=== PATIENT | female | born 1995 | race African-American/Black ===

== ENCOUNTER 2016-11-02 20:01 | Emergency (ER) | payer OTHER ==
[~2016-11-02] VITALS: Ht 157.5 cm; Wt 72.6 kg
[2016-11-02 20:32] LABS: URINE BILIRUBIN NEGATIVE (Negative); URINE BLOOD 3+ (Negative); URINE COLOR YELLOW; URINE GLUCOSE-RANDOM* NEGATIVE (Negative); URINE KETONES 2+ (Negative); URINE LEUKOCYTES-REFLEX NEGATIVE (Negative); URINE PROTEIN (DIPSTICK) NEGATIVE (Negative); URINE SPECIFIC GRAVITY 1.025 (1.003-1.035); URINE UROBILINOGEN 0.2 E.U./dl (0.2-1.0)
[2016-11-02 20:37] LABS: SQUAMOUS 4-10 Moderate /LPF (0-3); URINE WBC-REFLEX 0-5 Rare /HPF (0-5)
[2016-11-02 20:39] LABS: CASTS None Seen /LPF (None Seen); CRYSTALS None Seen /LPF (None Seen)
[2016-11-02 21:11] LABS: ABSOLUTE NEUTROPHILS 4.7 thou/uL (1.4-8.2); BASOPHILS 0.7 % (0.0-2.0); EOSINOPHILS 2.1 % (0.0-3.0); HEMATOCRIT 36.9 % (37.0-47.0); HEMOGLOBIN 12.3 gm/dL (12.0-15.0); LYMPHOCYTES 34.1 % (24.0-44.0); MCH 29.1 pg (26.0-34.0); MCHC 33.4 % (28.0-37.0); MONOCYTES 8.2 % (1.0-8.0); PLATELET COUNT 190 thou/uL (150-400); POLYS 54.9 % (36.0-66.0); RBC 4.24 mil/uL (4.20-5.00); RDW 13.5 % (10.5-14.5); WBC 8.5 thou/uL (4.0-11.0)
[2016-11-02 21:12] LABS: MANUAL DIFF NO
[2016-11-02 21:19] LABS: CALCIUM 8.7 mg/dL (8.5-10.1); CREATININE 0.7 mg/dL (0.6-1.3); POTASSIUM 3.4 mmol/L (3.5-5.1)
[2016-11-02] MEDS ORDERED: MOBIC15 MG PO (21:40)
[2016-11-02 21:48] VITALS: BP 117/73
[2016-11-05 14:10] LABS: CHLAMYDIA TRACHOMATIS-PCR Negative (Negative); NEISSERIA GONORRHEA-PCR Negative (Negative)
== END 2016-11-02 21:51 | disposition home or self-care (01) ==
LOC: ER 20:01
PROVIDERS: Physician Assistant
DX: N93.8 Other specified abnormal uterine and vaginal bleeding (principal)

== ENCOUNTER 2017-03-09 23:16 | Emergency (ER) | payer OTHER ==
[~2017-03-09] VITALS: Ht 157.5 cm; Wt 77.1 kg
[~2017-03-09 23:16] MED LIST: BIRTH CONTROL PILL; IBUPROFEN 600600 M1 PO; MOBIC15 MG PO; ULTRAM 50MG TAB50 MG PO
[2017-03-09 23:45] VITALS: BP 108/53
[2017-03-10] MEDS ORDERED: NAPROSYN500 MG PO (00:18)
== END 2017-03-10 00:23 | disposition home or self-care (01) ==
LOC: ER 23:16
DX: S86.112A Strain of other muscle(s) and tendon(s) of posterior muscle group at lower leg level, left leg, initial encounter (principal); W22.8XXA Striking against or struck by other objects, initial encounter; Y93.89 Activity, other specified; Y92.89 Other specified places as the place of occurrence of the external cause; Y99.9 Unspecified external cause status

== ENCOUNTER 2017-04-14 20:55 | Emergency (ER) | payer OTHER ==
[~2017-04-14] VITALS: Ht 157.5 cm; Wt 81.7 kg
[~2017-04-14 20:55] MED LIST changes: +NAPROSYN500 MG PO
[2017-04-14] MEDS ORDERED: LO LOESTRIN FE1 EACH PO (21:19)
[2017-04-14 21:26] LABS: URINE BILIRUBIN NEGATIVE (Negative); URINE BLOOD 1+ (Negative); URINE COLOR YELLOW; URINE GLUCOSE-RANDOM* NEGATIVE (Negative); URINE KETONES NEGATIVE (Negative); URINE NITRITE NEGATIVE (Negative); URINE PROTEIN (DIPSTICK) NEGATIVE (Negative); URINE SPECIFIC GRAVITY 1.015 (1.003-1.035); URINE UROBILINOGEN 0.2 E.U./dl (0.2-1.0)
[2017-04-14 21:26] LABS: BASOPHILS 0.6 % (0.0-2.0); EOSINOPHILS 1.5 % (0.0-3.0); HEMATOCRIT 40.5 % (37.0-47.0); HEMOGLOBIN 13.6 gm/dL (12.0-15.0); LYMPHOCYTES 23.5 % (24.0-44.0); MANUAL DIFF NO; MCH 28.9 pg (26.0-34.0); MCHC 33.5 g/dL (28.0-37.0); MCV 86.2 fL (80.0-100.0); MONOCYTES 8.6 % (1.0-8.0); PLATELET COUNT 189 thou/uL (150-400); POLYS 65.8 % (36.0-66.0); RDW 12.8 % (10.5-14.5); WBC 10.7 thou/uL (4.0-11.0)
[2017-04-14 21:31] LABS: SQUAMOUS 4-10 Moderate /LPF (0-3); URINE RBC 3-10 Few /HPF (0-2); URINE WBC 0-5 Rare /HPF (0-5)
[2017-04-14 21:32] LABS: CASTS None Seen /LPF (None Seen)
[2017-04-14 21:33] LABS: CRYSTALS None Seen /LPF (None Seen)
[2017-04-14 21:35] LABS: ANION GAP 9 mmol/L (7-16); BUN 11 mg/dL (7-18); CALCIUM 9.3 mg/dL (8.5-10.1); CHLORIDE 106 mmol/L (98-107); CO2 23 mmol/L (21-32); CREATININE 0.7 mg/dL (0.6-1.0); GLUCOSE 107 mg/dL (74-106); POTASSIUM 3.7 mmol/L (3.5-5.1); SODIUM 138 mmol/L (136-145)
[2017-04-14 21:39] LABS: ALBUMIN 3.7 g/dL (3.4-5.0); ALKALINE PHOSPHATASE 41 U/L (46-116); DIRECT BILIRUBIN < 0.1 mg/dL (<0.1-0.3); SGOT 12 U/L (15-37); SGPT 11 U/L (30-65); TOTAL BILIRUBIN 0.2 mg/dL (<0.1-1.0)
[2017-04-14] MEDS ORDERED: NORCO 5-325 TA1 EACH PO (22:28)
[2017-04-14 22:53] VITALS: BP 102/67
== END 2017-04-14 22:54 | disposition home or self-care (01) ==
LOC: ER 20:55
PROVIDERS: Emergency Medicine
DX: N83.202 Unspecified ovarian cyst, left side (principal); N83.201 Unspecified ovarian cyst, right side; K59.00 Constipation, unspecified; R04.0 Epistaxis

== ENCOUNTER 2017-06-01 19:00 | Emergency (ER) | payer OTHER ==
[~2017-06-01] VITALS: Ht 157.5 cm; Wt 83.9 kg
[~2017-06-01 19:00] MED LIST changes: +LO LOESTRIN FE1 EACH PO; +NORCO 5-325 TA1 EACH PO
[2017-06-01 19:01] VITALS: BP 93/57
[2017-06-01] MEDS ORDERED: IBUPROFEN 800800 M1 PO (19:37)
[2017-06-15] MEDS ORDERED: TRAMADOL 50 MG50 MG PO (17:07)
[2017-06-15] MEDS ORDERED: MOBIC7.5 MG PO (17:07)
== END 2017-06-01 20:03 | disposition home or self-care (01) ==
LOC: ER 19:00
DX: S80.12XA Contusion of left lower leg, initial encounter (principal); W11.XXXA Fall on and from ladder, initial encounter; Y93.89 Activity, other specified; Y92.89 Other specified places as the place of occurrence of the external cause; Y99.0 Civilian activity done for income or pay

== ENCOUNTER 2017-06-06 18:04 | Emergency (ER) | payer OTHER ==
[~2017-06-06] VITALS: Ht 157.5 cm; Wt 81.7 kg
[~2017-06-06 18:04] MED LIST changes: +IBUPROFEN 800800 M1 PO
[2017-06-06] MEDS ORDERED: NORCO 5-325 TA1 EACH PO (19:24)
[2017-06-06 19:45] VITALS: BP 119/82
== END 2017-06-06 19:48 | disposition home or self-care (01) ==
LOC: ER 18:04
DX: M25.561 Pain in right knee (principal); M25.562 Pain in left knee; V43.63XA Car passenger injured in collision with pick-up truck in traffic accident, initial encounter; Y93.89 Activity, other specified; Y92.89 Other specified places as the place of occurrence of the external cause; Y99.8 Other external cause status

== ENCOUNTER 2017-06-15 16:47 | Emergency (ER) | payer OTHER | END 2017-06-15 17:50 | disposition home or self-care (01) | LOC: ER 16:47 | DX: M25.561 Pain in right knee (principal); M25.562 Pain in left knee ==

== ENCOUNTER 2017-07-02 00:04 | Emergency (ER) | payer OTHER ==
[~2017-07-02] VITALS: Ht 157.5 cm; Wt 81.7 kg
[~2017-07-02 00:04] MED LIST changes: +MOBIC7.5 MG PO; +TRAMADOL 50 MG50 MG PO
[2017-07-02 02:18] VITALS: BP 142/86
== END 2017-07-02 02:19 | disposition home or self-care (01) ==
LOC: ER 00:04
DX: S86.812A Strain of other muscle(s) and tendon(s) at lower leg level, left leg, initial encounter (principal); V89.2XXA Person injured in unspecified motor-vehicle accident, traffic, initial encounter; Y93.89 Activity, other specified; Y92.89 Other specified places as the place of occurrence of the external cause; Y99.8 Other external cause status